=== PATIENT | male | born 1960 | race Caucasian/White ===

== ENCOUNTER 2020-07-22 07:42 | Outpatient (NON) | payer OTHER, SELFPAY ==
[2020-07-22 19:19] LABS: SARS-CoV-2 RNA PCR Negative
== END 2020-07-22 07:43 ==
PROVIDERS: Visit Provider Nurse Practitioner Family
DX: Z20.828 Contact with and (suspected) exposure to other viral communicable diseases (principal)
CPT/HCPCS: 87635; C9803; U0003